=== PATIENT | female | born 1940 | race Caucasian/White ===

== ENCOUNTER 2017-12-23 10:44 | Emergency (ER) | payer MEDICARE ==
[~2017-12-23] VITALS: Ht 154.9 cm; Wt 63.5 kg
[~2017-12-23 10:44] MED LIST: ALBU2TAB4 PO; FORM20NE INH; IPRA0.06 EACH NARE; LEVO112T2 PO; LOSA100T PO; LOVA40TA PO; SPIRCAP INH; TRAM50TA PO; VENTAER INH
[2017-12-23 10:45] VITALS: BP 130/62; PULSE 70; RESP 18; TEMP 98; O2SAT 93
[2017-12-23 11:01] VITALS: O2SAT 94
[2017-12-23] MEDS ORDERED: ALBU0.08 NEB (11:10)
--- NOTE | 2017-12-23 11:21 | PD ---
HPI Chief Complaint: Altered Mental Status Time Seen by Provider: 11:02 Travel History International Travel<30 days: No Contact w/Intl Traveler<30days: No Traveled to known affect area: No History of Present Illness HPI 77-year-old female presents the ER for evaluation of status and generalized weakness. Patient states that she lost her "life partner" on November and since then she has been feeling depressed, low appetite, difficulty sleeping. She discussed these with her primary care physician who gave her "a pill" for "anxiety" and she started taking it yesterday and started feeling dizzy, nauseous and that she fell at home. Fall was due to feeling dizzy and lightheaded, hit her right hip, and she obtained mild pain in the middle of her leg, no bruises or open wounds, patient is able to walk on both legs with no problems, she has no dizziness right now but reports feeling nauseous, she lifts home by herself but states that there is a friend that comes in to check on her. Patient is able to take care of herself she cook for herself takes care of her own financials, she denies any loss of consciousness or head trauma. She has no motor or sensory deficits, she has no difficulty with speech , gait is normal, denies any suicidal or homicidal ideations. PFSH Past Medical History Asthma: Yes High Cholesterol: Yes Diminished Hearing: No Musculoskeletal: Yes (chronic back pain) Thyroid Disease: Yes ?: Not Social History Alcohol Use: No Tobacco Use: No Substance Use: No Allergies-Medications (Allergen,Severity, Reaction): Coded Allergies: codeine (Unverified Allergy, Mild, Itching, 12/23/17) Reported Meds & Prescriptions Reported Meds & Active Scripts Active Reported Albuterol Neb (Albuterol Sulfate) 2.5 Mg/3 Ml Neb 2.5 Mg NEB Q4HR NEB While awake Ventolin Hfa 18 GM Inh (Albuterol Sulfate) 90 Mcg/Act Aer 2 Puff INH Q4-6H PRN Tramadol (Tramadol HCl) 50 Mg Tab 50 Mg PO Q4H PRN Spiriva Handihaler (Tiotropium Inh) 18 Mcg Cap 18 Mcg INH DAILY 1 capsule = 18 mcg Lovastatin 40 Mg Tab 40 Mg PO DAILY Losartan (Losartan Potassium) 100 Mg Tab 100 Mg PO DAILY Levothyroxine (Levothyroxine Sodium) 112 Mcg Tab 112 Mcg PO DAILY Ipratropium Nasal 0.06% [place] 1 [place] EACH NARE TID Perforomist Neb (Formoterol Fumarate) 20 Mcg/2 Ml Neb 1 Nebule INH BID Review of Systems Except as stated in HPI: all other systems reviewed are Neg Physical Exam Narrative GENERAL: Alert oriented 3 maintains eye contact logical thinking. SKIN: Focused skin assessment warm/dry. HEAD: Atraumatic. Normocephalic. EYES: Pupils equal and round. No scleral icterus. No injection or drainage. ENT: No nasal bleeding or discharge. Mucous membranes pink and moist. NECK: Trachea midline. No JVD. CARDIOVASCULAR: Regular rate and rhythm. No murmur appreciated. RESPIRATORY: No accessory muscle use. Clear to auscultation. Breath sounds equal bilaterally. GASTROINTESTINAL: Abdomen soft, non-tender, nondistended. Hepatic and splenic margins not palpable. MUSCULOSKELETAL: No obvious deformities. No clubbing. No cyanosis. No edema. NEUROLOGICAL: Awake and alert. No obvious cranial nerve deficits. Motor grossly within normal limits. Normal speech. PSYCHIATRIC: Appropriate mood and affect; insight and judgment normal. Data Data Last Documented VS Vital Signs Date Time Temp Pulse Resp B/P (MAP) Pulse Ox O2 Delivery O2 Flow Rate FiO2 12/23/17 11:01 94 Room Air 12/23/17 10:54 70 12/23/17 10:45 98.0 18 130/62 (84) Orders Orders Blood Glucose (12/23/17 10:45) Oximetry (12/23/17 10:45) Iv Access Insert/Monitor (12/23/17 10:45) Ecg Monitoring (12/23/17 10:45) Oxygen Administration (12/23/17 10:45) Urinalysis - C+S If Indicated (12/23/17 10:45) Ammonia (12/23/17 11:12) Comprehensive Metabolic Panel (12/23/17 11:12) Complete Blood Count With Diff (12/23/17 11:12) Thyroid Stimulating Hormone (12/23/17 11:12) Ct Brain W/O Iv Contrast(Rout) (12/23/17 ) Hip, Uni(Ap&Lat) W Ap Pelvis (12/23/17 ) Urine Culture (12/23/17 11:48) Ed Discharge Order (12/23/17 12:56) Ondansetron Odt (Zofran Odt) (12/23/17 13:15) Labs Laboratory Tests Test 12/23/17 11:15 12/23/17 11:30 12/23/17 11:48 White Blood Count 4.5 TH/MM3 Red Blood Count 4.50 MIL/MM3 Hemoglobin 13.6 GM/DL Hematocrit 40.8 % Mean Corpuscular Volume 90.8 FL Mean Corpuscular Hemoglobin 30.3 PG Mean Corpuscular Hemoglobin Concent 33.3 % Red Cell Distribution Width 14.9 % Platelet Count 259 TH/MM3 Mean Platelet Volume 9.1 FL Neutrophils (%) (Auto) 73.0 % Lymphocytes (%) (Auto) 18.7 % Monocytes (%) (Auto) 5.8 % Eosinophils (%) (Auto) 1.4 % Basophils (%) (Auto) 1.1 % Neutrophils # (Auto) 3.3 TH/MM3 Lymphocytes # (Auto) 0.8 TH/MM3 Monocytes # (Auto) 0.3 TH/MM3 Eosinophils # (Auto) 0.1 TH/MM3 Basophils # (Auto) 0.0 TH/MM3 CBC Comment DIFF FINAL Differential Comment Blood Urea Nitrogen 17 MG/DL Creatinine 1.20 MG/DL Random Glucose 87 MG/DL Total Protein 8.3 GM/DL Albumin 3.8 GM/DL Calcium Level 9.5 MG/DL Alkaline Phosphatase 93 U/L Aspartate Amino Transf (AST/SGOT) 36 U/L Alanine Aminotransferase (ALT/SGPT) 25 U/L Total Bilirubin 0.6 MG/DL Sodium Level 139 MEQ/L Potassium Level 5.0 MEQ/L Chloride Level 102 MEQ/L Carbon Dioxide Level 28.8 MEQ/L Anion Gap 8 MEQ/L Estimat Glomerular Filtration Rate 43 ML/MIN Thyroid Stimulating Hormone 3rd Gen 33.200 uIU/ML Ammonia 13 MCMOL/L Urine Color YELLOW Urine Turbidity CLOUDY Urine pH 7.5 Urine Specific [place] 1.010 Urine Protein NEG mg/dL Urine Glucose (UA) NEG mg/dL Urine Ketones NEG mg/dL Urine Occult Blood MOD Urine Nitrite POS Urine Bilirubin NEG Urine Urobilinogen 1.0 MG/DL Urine Leukocyte Esterase MOD Urine RBC 0-3 /hpf Urine WBC 6-8 /hpf Urine Squamous Epithelial Cells 0-5 /hpf Urine Bacteria MANY /hpf Microscopic Urinalysis Comment CULTURE INDICATED MDM Medical Decision Making Medical Screen Exam Complete: Yes Emergency Medical Condition: Yes Differential Diagnosis Hypothyroidism, normal grief, depression. Narrative Course 77-year-old female presented ER for evaluation after a fall and generalized weakness and altered mental status. Physical examination reveals normal- looking adult with him not in acute distress and she answers questions properly and she has no altered mental status alert oriented 3. Labs are distended with UTI and hypothyroidism patient is supposed to take levothyroxine 112 mcg daily but she admits that she has not been taking it for the last few weeks. I told the patient that I will not change the dose but she will have to take her medication and follow-up with her primary so that she can evaluate her for her hypothyroid problem. Patient understands and agrees with plan of care. Laboratory Tests Test 12/23/17 11:15 12/23/17 11:30 12/23/17 11:48 White Blood Count 4.5 TH/MM3 Red Blood Count 4.50 MIL/MM3 Hemoglobin 13.6 GM/DL Hematocrit 40.8 % Mean Corpuscular Volume 90.8 FL Mean Corpuscular Hemoglobin 30.3 PG Mean Corpuscular Hemoglobin Concent 33.3 % Red Cell Distribution Width 14.9 % Platelet Count 259 TH/MM3 Mean Platelet Volume 9.1 FL Neutrophils (%) (Auto) 73.0 % Lymphocytes (%) (Auto) 18.7 % Monocytes (%) (Auto) 5.8 % Eosinophils (%) (Auto) 1.4 % Basophils (%) (Auto) 1.1 % Neutrophils # (Auto) 3.3 TH/MM3 Lymphocytes # (Auto) 0.8 TH/MM3 Monocytes # (Auto) 0.3 TH/MM3 Eosinophils # (Auto) 0.1 TH/MM3 Basophils # (Auto) 0.0 TH/MM3 CBC Comment DIFF FINAL Differential Comment Blood Urea Nitrogen 17 MG/DL Creatinine 1.20 MG/DL Random Glucose 87 MG/DL Total Protein 8.3 GM/DL Albumin 3.8 GM/DL Calcium Level 9.5 MG/DL Alkaline Phosphatase 93 U/L Aspartate Amino Transf (AST/SGOT) 36 U/L Alanine Aminotransferase (ALT/SGPT) 25 U/L Total Bilirubin 0.6 MG/DL Sodium Level 139 MEQ/L Potassium Level 5.0 MEQ/L Chloride Level 102 MEQ/L Carbon Dioxide Level 28.8 MEQ/L Anion Gap 8 MEQ/L Estimat Glomerular Filtration Rate 43 ML/MIN Thyroid Stimulating Hormone 3rd Gen 33.200 uIU/ML Ammonia 13 MCMOL/L Urine Color YELLOW Urine Turbidity CLOUDY Urine pH 7.5 Urine Specific [place] 1.010 Urine Protein NEG mg/dL Urine Glucose (UA) NEG mg/dL Urine Ketones NEG mg/dL Urine Occult Blood MOD Urine Nitrite POS Urine Bilirubin NEG Urine Urobilinogen 1.0 MG/DL Urine Leukocyte Esterase MOD Urine RBC 0-3 /hpf Urine WBC 6-8 /hpf Urine Squamous Epithelial Cells 0-5 /hpf Urine Bacteria MANY /hpf Microscopic Urinalysis Comment CULTURE INDICATED Last 24 hours Impressions Hip and Pelvis X-Ray 12/23/17 0000 Signed Impressions: CONCLUSION: Moderate osteopenia and in no definite fracture for technique . Head CT 12/23/17 0000 Signed Impressions: CONCLUSION: Slight chronic small vessel ischemic and atrophic changes. Diagnosis Primary Impression: Hypothyroidism Qualified Codes: E03.9 - Hypothyroidism, unspecified Additional Impression: UTI (urinary tract infection) Qualified Codes: N39.0 - Urinary tract infection, site not specified Additional Instructions: Follow-up with primary care physician return here if symptoms change or do not improve. Scripts Cephalexin (Keflex) 500 Mg Cap 500 MG PO Q12H for Infection for 7 Days, #14 CAP 0 Refills Prov: Danyel Tidwell MD 12/23/17 Disposition: 01 DISCHARGE HOME Condition: Stable Danyel Tidwell MD Dec 23, 2017 11:21
[2017-12-23 11:39] LABS: AUTOMATED NEUTROPHIL # 3.3 TH/MM3 (1.8-7.7); BASOPHIL % 1.1 % (0.0-2.0); EOSINOPHIL # 0.1 TH/MM3 (0-0.4); EOSINOPHIL % 1.4 % (0.0-4.0); HEMATOCRIT 40.8 % (35.0-46.0); HEMOGLOBIN 13.6 GM/DL (11.6-15.3); LYMPH % 18.7 % (9.0-44.0); LYMPHOCYTE # 0.8 TH/MM3 (1.0-4.8); MEAN CELL VOLUME 90.8 FL (80.0-100.0); MEAN CORPUSCULAR HEMOGLOBIN 30.3 PG (27.0-34.0); MEAN CORPUSCULAR HGB CONC 33.3 % (32.0-36.0); MEAN PLATELET VOLUME 9.1 FL (7.0-11.0); MONO % 5.8 % (0.0-8.0); MONOCYTE # 0.3 TH/MM3 (0-0.9); PLATELET COUNT 259 TH/MM3 (150-450); RED CELL DISTRIBUTION WIDTH 14.9 % (11.6-17.2); WHITE BLOOD COUNT 4.5 TH/MM3 (4.0-11.0)
[2017-12-23 11:45] LABS: CHLORIDE 102 MEQ/L (98-107); SODIUM (NA) 139 MEQ/L (136-145)
[2017-12-23 11:49] LABS: ALBUMIN 3.8 GM/DL (3.4-5.0); BICARBONATE 28.8 MEQ/L (21.0-32.0); BLOOD UREA NITROGEN 17 MG/DL (7-18); CALCIUM 9.5 MG/DL (8.5-10.1); GLUCOSE,RANDOM 87 MG/DL (74-106)
[2017-12-23 11:52] LABS: BILIRUBIN, URINE NEG (NEG); BLOOD, URINE MOD (NEG); GLUCOSE,URINE NEG (NEG); KETONE, URINE NEG (NEG); NITRITE,URINE POS (NEG); PH, URINE 7.5 (5.0-8.5); URINE COLOR YELLOW (YELLW/STRAW); URINE LEUKOCYTE ESTERASE MOD (NEG)
[2017-12-23 11:52] LABS: ALT (GPT) 25 U/L (10-53); AST (GOT) 36 U/L (15-37); GLOMERULAR FILTRATION RATE 43 ML/MIN (>89)
[2017-12-23 11:54] LABS: TOTAL BILIRUBIN ADULT 0.6 MG/DL (0.2-1.0); TOTAL PROTEIN 8.3 GM/DL (6.4-8.2)
[2017-12-23 11:55] LABS: ALKALINE PHOSPHATASE 93 U/L (45-117)
[2017-12-23 11:57] LABS: BACTERIA, URINE MANY /hpf; RBC, URINE 0-3 /hpf (0-3); SQUAMOUS EPITHELIAL CELL URINE 0-5 /hpf (0-5)
--- NOTE | 2017-12-23 12:16 | RADRPT ---
EXAM DATE: 12/23/2017 12:06 PM EDT AGE/SEX: 77 years / Female INDICATIONS: Right hip pain post fall. CLINICAL DATA: This is the patient's initial encounter. Patient reports that signs and symptoms have been present for 3 days and indicates a pain score of 6/10. MEDICAL/SURGICAL HISTORY: None. None. COMPARISON: No prior exams available for comparison. FINDINGS: No definite fractures, or dislocations are identified. No definite lytic or sclerotic les ion is seen. Moderate osteopenia is seen. CONCLUSION: Moderate osteopenia and in no definite fracture for technique . Electronically signed by: Eliseo Powers MD 12/23/2017 12:14 PM EDT
--- NOTE | 2017-12-23 12:45 | RADRPT ---
EXAM DATE: 12/23/2017 12:39 PM EDT AGE/SEX: 77 years / Female INDICATIONS: Trauma, fall today. CLINICAL DATA: This is the patient's initial encounter. Patient reports that signs and symptoms have been present for 1 day and indicates a pain score of 0/10. MEDICAL/SURGICAL HISTORY: Hypertension. None. RADIATION DOSE: 44.64 CTDI (mGy) COMPARISON: No prior exams available for comparison. TECHNIQUE: CT of the head without contrast. Using automated exposure control and adjustment of the mA and/or kV according to patient size, radiation dose was kept as low as reasonably achievable to ob tain optimal diagnostic quality images. FINDINGS: There is no evidence for intracranial hemorrhage, mass effect, mass lesions, or edema. The visualize d bony structures appear intact. Slight degree of brain atrophy is seen. Slight periventricular whit e matter changes are seen nonspecific mostly consistent with chronic small vessel ischemic changes. There are no signs of acute infarction for technique. CONCLUSION: Slight chronic small vessel ischemic and atrophic changes. Electronically signed by: Eliseo Powers MD 12/23/2017 12:44 PM EDT
[2017-12-23] MEDS ORDERED: CEPH-460 PO (13:12)
[2017-12-23] MEDS ORDERED: ONDANSETRON ODT 4 MG TAB PO ONE (13:15)
[2017-12-23 13:19] VITALS: BP 145/72; PULSE 68; RESP 18; O2SAT 94
== END 2017-12-23 13:39 | disposition home or self-care (01) ==
LOC: PHED 10:44
DX: E03.9 Hypothyroidism, unspecified (principal); N39.0 Urinary tract infection, site not specified; B96.20 Unspecified Escherichia coli [E. coli] as the cause of diseases classified elsewhere; M85.80 Other specified disorders of bone density and structure, unspecified site; R53.1 Weakness; R42 Dizziness and giddiness; J45.909 Unspecified asthma, uncomplicated; E78.00 Pure hypercholesterolemia, unspecified; Z79.51 Long term (current) use of inhaled steroids
CPT/HCPCS: 70450; 73502; 80053; 81001; 82140; 84443; 85025; 87077; 87086; 87186

== ENCOUNTER 2018-06-07 23:23 | Inpatient (IN) ==
--- NOTE | 2018-06-07 23:59 | XR ---
EXAM DATE: 06/07/2018 11:49 PM EST AGE/SEX: 77 years / Female INDICATIONS: Shortness of breath. CLINICAL DATA: This is the patient's initial encounter. Patient reports that signs and symptoms have been present for 1 day and indicates a pain score of 0/10. MEDICAL/SURGICAL HISTORY: Gastroesophageal reflux disease. Hypercholesterolemia. Hypertension . COPD. Tonsillectomy. COMPARISON: [facility], CHEST 1V SINGLE AP, 05/06/2018. . FINDINGS: A single AP view of the chest demonstrates the lungs to be symmetrically aerated without evidence of mass, infiltrate or effusion. The cardiomediastinal contours are unremarkable. Osseous structures a re intact. CONCLUSION: No acute findings. Electronically signed by: Neville Mantilla MD 06/07/2018 11:58 PM EST
[2018-06-08 00:08] LABS: ABG Base Excess 4.3 mmol/L (-2-2); ABG PCO2 48 mmHg (38-42); ABG PO2 69 mmHg (61-120)
[2018-06-08 00:17] LABS: Baso # (Auto) 0.1 th/mm3 (0.0-0.2); Baso % (Auto) 0.8 % (0.0-2.0); Eos # (Auto) 0.3 th/mm3 (0.0-0.4); Eos % (Auto) 3.3 % (0.0-4.0); Hematocrit 33.8 % (35.0-46.0); Hemoglobin 11.8 gm/dL (11.6-15.3); Lymph # (Auto) 2.6 th/mm3 (1.0-4.8); Lymph % (Auto) 26.4 % (9.0-44.0); Mean Corpuscular HGB Conc 34.9 % (32.0-36.0); Mean Corpuscular Hemoglobin 32.8 pg (27.0-34.0); Mean Platelet Volume 8.5 fL (7.0-11.0); Mono # (Auto) 0.7 th/mm3 (0.0-0.9); Mono % (Auto) 7.5 % (0.0-8.0); Neut # (Auto) 6.2 th/mm3 (1.8-7.7); Platelet Count 304 th/mm3 (150-450); Red Cell Distribution Width 13.5 % (11.6-17.2)
[2018-06-08 00:21] LABS: Bacteria,Urine Rare /hpf; Bilirubin,Urine Negative (Negative); Clarity,Urine Clear (Clear); Color,Urine Colorless (Yellw/Straw); Glucose,Urine (UA) Negative (Negative); Leukocyte Esterase,Urine Small (Negative); Nitrite,Urine Negative (Negative); Specific Gravity,Urine 1.002 (1.002-1.035); Squamous Epithelial Cell,Urine 1 /hpf (0-5)
[2018-06-08 00:34] LABS: Alkaline Phosphatase 87 U/L (45-117); Total Protein 7.4 g/dL (6.4-8.2)
[2018-06-08 00:39] LABS: Alanine Aminotransferase 22 U/L (10-53); Albumin 3.5 g/dL (3.4-5.0); Anion Gap 4 meq/L (5-15); Aspartate Aminotransferase 35 U/L (15-37); Blood Urea Nitrogen 18 mg/dL (7-18); Calcium 9.1 mg/dL (8.5-10.1); Carbon Dioxide 31.5 meq/L (21.0-32.0); Chloride 107 meq/L (98-107); Glomerular Filtration Rate 52 mL/min (>89); Magnesium 3.1 mg/dL (1.5-2.5); Potassium 3.9 meq/L (3.5-5.1); Sodium 142 meq/L (136-145)
[2018-06-08 00:51] LABS: Glucose,Random 95 mg/dL (74-106)
[2018-06-08] MEDS ORDERED: Acetaminophen 325 MG Tablet PO PRN (01:42)
[2018-06-08] MEDS ORDERED: Bisacodyl 10 MG Supp RECTAL PRN (01:42)
--- NOTE | 2018-06-08 01:42 | ED ---
HPI General Chief complaint: Asthma Stated complaint: SOB Time Seen by Provider: 06/07/18 23:35 Source: patient Mode of arrival: EMS Limitations: no limitations History of Present Illness HPI narrative: 77-year-old female came to the emergency room with history of shortness of breath that started this morning and has progressively worsened. Patient has history of COPD and asthma and has been using her inhaler but did not improve. When EMS arrived her oxygen saturation was 81% on room air. She was given 2 duo nebs and magnesium. Upon arrival she was saturating 94% on 2 L via nasal cannula. Patient was awake and answering questions at this point although appeared to be anxious and in some distress. She says she has never been intubated or in the ICU. History of smoking 35 years ago. No history of chest pain this time. No history of fever or chills. She has been coughing some yellowish colored phlegm. Patient does not see a respite provider. She is not on oxygen at home. Related Data Home Medications Medication Instructions Recorded Confirmed losartan 100 mg PO DAILY 04/29/18 06/07/18 lovastatin 40 mg PO DAILY 04/29/18 06/07/18 albuterol sulfate [Ventolin HFA] 2 puff INHALATION Q4-6H PRN 06/07/18 06/07/18 levothyroxine 112 mcg PO DAILY 06/07/18 06/07/18 omeprazole 20 mg PO DAILY 06/07/18 06/07/18 ranitidine HCl [Zantac Maximum 150 mg PO BID 06/07/18 06/07/18 Strength] tiotropium bromide [Spiriva with 1 cap INHALATION DAILY 06/07/18 06/07/18 HandiHaler] Previous Rx's Medication Instructions Recorded albuterol sulfate 2 inh INHALATION Q4-6H #1 g 02/08/18 albuterol sulfate [Ventolin HFA] 2 inh INHALATION Q4H PRN #8 g 04/29/18 Allergies Allergy/AdvReac Type Severity Reaction Status Date / Time codeine Allergy Mild Itching Verified 05/06/18 09:14 Review of Systems ROS: all other systems reviewed are negative [facility] Medical History Medical History COPD (chronic obstructive pulmonary disease) (Acute) Chronic GERD (Acute) High cholesterol (Acute) Hypertension (Acute) Surgical History Surgical History S/P tonsillectomy (Acute) Social History Social History Substance History: No History of Abuse Second Hand Smoke Exposure: No Smoking Status: Never smoker Tobacco Type: Cigarettes How Often Do You Have a Drink Containing Alcohol: Never Immunization History Tetanus Immunization: >5 Years Exam Narrative Exam Narrative: GENERAL: Awake, alert, elderly, frail, moderate distress SKIN: Focused skin assessment warm/dry. Pale HEAD: Atraumatic. Normocephalic. EYES: Pupils equal and round. No scleral icterus. No injection or drainage. ENT: No nasal bleeding or discharge. Mucous membranes pink and moist. NECK: Trachea midline. No JVD. CARDIOVASCULAR: Regular rate and rhythm. No murmur appreciated. RESPIRATORY: Decreased air entry bilaterally with end expiratory wheeze. GASTROINTESTINAL: Abdomen soft, non-tender, nondistended. Hepatic and splenic margins not palpable. MUSCULOSKELETAL: No obvious deformities. No clubbing. No cyanosis. No edema. NEUROLOGICAL: Awake and alert. No obvious cranial nerve deficits. Motor grossly within normal limits. Normal speech. PSYCHIATRIC: Appropriate mood and affect; insight and judgment normal. Course Initial Documented Vital Signs Pulse Rate 85 06/07/18 23:26 Respiratory Rate 26 H 06/07/18 23:26 Blood Pressure 146/62 H 06/07/18 23:26 Pulse Oximetry 94 L 06/07/18 23:26 Last Documented Vital Signs Pulse Rate 94 H 06/08/18 00:17 Respiratory Rate 22 06/08/18 00:17 Blood Pressure 146/62 H 06/07/18 23:32 Pulse Oximetry 96 06/07/18 23:43 Medical Decision Making MDM Narrative Medical decision making narrative: 1:40 AM blood test results are back and within acceptable limit. Cardiac enzymes are within normal limit. Patient was given 2 duo nebs followed by 2 albuterol nebulizer. Solu-Medrol was given IV. I went back and reassessed the patient and she says she is feeling better. Upon re-auscultation air entry has slightly improved but still diminished. I decided to admit her. The plan was mentioned to the patient and she is agreeable with it. I discussed the case with the hospitalist was accepted the patient. Lab Data Result diagrams: 06/07/18 23:48 06/07/18 23:49 Lab Results 06/07/18 06/07/18 06/07/18 Range/Units 23:45 23:48 23:48 WBC 10.0 (4.0-11.0) th/mm3 RBC 3.60 L (4.00-5.30) mil/mm3 Hgb 11.8 (11.6-15.3) gm/dL Hct 33.8 L (35.0-46.0) % MCV 94.0 (80.0-100.0) fL MCH 32.8 (27.0-34.0) pg MCHC 34.9 (32.0-36.0) % RDW 13.5 (11.6-17.2) % Plt Count 304 (150-450) th/mm3 MPV 8.5 (7.0-11.0) fL Neut % (Auto) 62.0 (16.0-70.0) % Lymph % (Auto) 26.4 (9.0-44.0) % [place] % (Auto) 7.5 (0.0-8.0) % Eos % (Auto) 3.3 (0.0-4.0) % Baso % (Auto) 0.8 (0.0-2.0) % Neut # (Auto) 6.2 (1.8-7.7) th/mm3 Lymph # (Auto) 2.6 (1.0-4.8) th/mm3 [place] # (Auto) 0.7 (0.0-0.9) th/mm3 Eos # (Auto) 0.3 (0.0-0.4) th/mm3 Baso # (Auto) 0.1 (0.0-0.2) th/mm3 WBC Differential . Differential Comment Auto diff final Puncture Site Patient Temperature O2 Saturation (90-100) % ABG pH (7.380-7.420) ABG pCO2 (38-42) mmHg ABG pO2 (61-120) mmHg ABG HCO3 (22-26) mmol/L ABG O2 Content (12.0-20.0) Vol % ABG Base Excess (-2-2) mmol/L ABG Methemoglobin (0-2) % Meir Test Hemoglobin (12.0-16.0) G/DL Carboxyhemoglobin (0-4) % O2 Delivery Device Liter Flow L/M Critical Value Sodium (136-145) meq/L Potassium (3.5-5.1) meq/L Chloride (98-107) meq/L Carbon Dioxide (21.0-32.0) meq/L Anion Gap (5-15) meq/L BUN (7-18) mg/dL Creatinine (0.50-1.00) mg/dL Estimated GFR (>89) mL/min Random Glucose (74-106) mg/dL Lactic Acid 1.3 (0.4-2.0) mmol/L Calcium (8.5-10.1) mg/dL Magnesium (1.5-2.5) mg/dL Total Bilirubin (0.2-1.0) mg/dL AST (15-37) U/L ALT (10-53) U/L Alkaline Phosphatase (45-117) U/L Troponin I (0.02-0.05) ng/mL B-Natriuretic Peptide (0-100) pg/mL Total Protein (6.4-8.2) g/dL Albumin (3.4-5.0) g/dL Urine Color Colorless (Yellw/Straw) Urine Clarity Clear (Clear) Urine pH 7.0 (5.0-8.5) Ur Specific [place] 1.002 (1.002-1.035) Urine Protein Negative (Neg-Trace) mg/dL Urine Glucose (UA) Negative (Negative) mg/dL Urine Ketones Negative (Negative) mg/dL Urine Occult Blood Small H (Negative) Urine Nitrate Negative (Negative) Urine Bilirubin Negative (Negative) Urine Urobilinogen Less than 2 (Less than 2) mg/dL Ur Leukocyte Esterase Small H (Negative) Urine WBC 1 (0-5) /hpf Ur Squamous Epith Cells 1 (0-5) /hpf Urine Bacteria Rare H (None) /hpf Micro UA Comment Culture not ind Ur Microscopic Review Not Reportable Urine Culture Comments Culture not ind 06/07/18 06/07/18 06/07/18 Range/Units 23:48 23:49 23:59 WBC (4.0-11.0) th/mm3 RBC (4.00-5.30) mil/mm3 Hgb (11.6-15.3) gm/dL Hct (35.0-46.0) % MCV (80.0-100.0) fL MCH (27.0-34.0) pg MCHC (32.0-36.0) % RDW (11.6-17.2) % Plt Count (150-450) th/mm3 MPV (7.0-11.0) fL Neut % (Auto) (16.0-70.0) % Lymph % (Auto) (9.0-44.0) % [place] % (Auto) (0.0-8.0) % Eos % (Auto) (0.0-4.0) % Baso % (Auto) (0.0-2.0) % Neut # (Auto) (1.8-7.7) th/mm3 Lymph # (Auto) (1.0-4.8) th/mm3 [place] # (Auto) (0.0-0.9) th/mm3 Eos # (Auto) (0.0-0.4) th/mm3 Baso # (Auto) (0.0-0.2) th/mm3 WBC Differential Differential Comment Puncture Site Right radial Patient Temperature 98.6 O2 Saturation 92 (90-100) % ABG pH 7.40 (7.380-7.420) ABG pCO2 48 H (38-42) mmHg ABG pO2 69 (61-120) mmHg ABG HCO3 29 H (22-26) mmol/L ABG O2 Content 15.5 (12.0-20.0) Vol % ABG Base Excess 4.3 H (-2-2) mmol/L ABG Methemoglobin 0.6 (0-2) % Meir Test Present Hemoglobin 12.0 (12.0-16.0) G/DL Carboxyhemoglobin 0.8 (0-4) % O2 Delivery Device Nasal cannula Liter Flow 2.00 L/M Critical Value No Sodium 142 (136-145) meq/L Potassium 3.9 (3.5-5.1) meq/L Chloride 107 (98-107) meq/L Carbon Dioxide 31.5 (21.0-32.0) meq/L Anion Gap 4 L (5-15) meq/L BUN 18 (7-18) mg/dL Creatinine 1.03 H (0.50-1.00) mg/dL Estimated GFR 52 L (>89) mL/min Random Glucose 95 (74-106) mg/dL Lactic Acid (0.4-2.0) mmol/L Calcium 9.1 (8.5-10.1) mg/dL Magnesium 3.1 H (1.5-2.5) mg/dL Total Bilirubin 0.2 (0.2-1.0) mg/dL AST 35 (15-37) U/L ALT 22 (10-53) U/L Alkaline Phosphatase 87 (45-117) U/L Troponin I Less than 0.02 L (0.02-0.05) ng/mL B-Natriuretic Peptide 10 (0-100) pg/mL Total Protein 7.4 (6.4-8.2) g/dL Albumin 3.5 (3.4-5.0) g/dL Urine Color (Yellw/Straw) Urine Clarity (Clear) Urine pH (5.0-8.5) Ur Specific [place] (1.002-1.035) Urine Protein (Neg-Trace) mg/dL Urine Glucose (UA) (Negative) mg/dL Urine Ketones (Negative) mg/dL Urine Occult Blood (Negative) Urine Nitrate (Negative) Urine Bilirubin (Negative) Urine Urobilinogen (Less than 2) mg/dL Ur Leukocyte Esterase (Negative) Urine WBC (0-5) /hpf Ur Squamous Epith Cells (0-5) /hpf Urine Bacteria (None) /hpf Micro UA Comment Ur Microscopic Review Urine Culture Comments Imaging Data Radiologist's impression: Chest X-Ray 06/07/18 23:35 CONCLUSION: No acute findings. ECG Data Attestation: I personally reviewed and interpreted this ECG as follows: Interpretation: Twelve-lead EKG was reviewed by me. Normal sinus rhythm, normal axis, nonspecific ST-T wave changes. Heart rate of 85 bpm. Discharge Plan Discharge Disposition Patient Disposition: 30 Still Patient Physicians Team ED Provider: Ana Martinez Primary Care Provider: Evelio Ramos Attending Provider: Deandre Scales Discharge Interventions Interventions: Vital Signs Last Done: 06/07/18 23:32 Status ED Status: Admitted Patient
[2018-06-08] MEDS: MethylPREDNISolone Sod Succinate Inj 125 MG/2 ML Vial IV.PUSH SCH ×4 (02:26→23:33)
[2018-06-08] MEDS: Levothyroxine 112 MCG Tablet PO SCH (08:50)
[2018-06-08] MEDS: Senna/Docusate Sodium 8.6/50 MG Tablet PO SCH ×2 (08:51→20:42)
[2018-06-08] MEDS ORDERED: Influenza (Quadrivalent) Vaccine 0.5 ML Syringe IM ONE (09:00)
[2018-06-08] MEDS ORDERED: Famotidine 20 MG Tablet PO SCH ×2 (09:00→21:00)
[2018-06-08] MEDS ORDERED: Pantoprazole Sodium 20 MG DR Tablet PO SCH (09:00)
--- NOTE | 2018-06-08 09:11 | P.HPIM ---
History of Present Illness Primary Care Physician: Evelio Ramos Chief Complaint: Shortness of breath History of Present Illness: This is a 77-year-old female with past medical history which includes asthma, borderline diabetes mellitus, COPD, chronic kidney disease stage III, degenerative disc disease, hyperlipidemia, hypertension, hypothyroidism, restless leg syndrome who presented to the emergency department last night due to shortness of breath. Patient reported that started in the morning and has progressively worsened. She has been coughing some yellowish colored phlegm. Patient has history of COPD and asthma and has been using her inhaler with no improvement. When EMS arrived her oxygen saturation was 81% on room air. She was given 2 duo nebs. Upon arrival she was saturating 94% on 2 L via nasal cannula. Patient was awake and answering questions but appeared to be anxious and in some distress upon arrival to the ER. She says she has never been intubated or in the ICU. History of smoking 35 years ago. Patient denies chest pain, fevers or chills. Patient does not see a furniture painter. She is not on oxygen at home. PMH: asthma, borderline diabetes mellitus, COPD, chronic kidney disease stage III, degenerative disc disease, hyperlipidemia, hypertension, hypothyroidism, restless leg syndrome PSxH: Back surgery, colonoscopy, excision of lesion on hands, excision of tendon sheath of finger and knee surgery FMH: Reviewed and noncontributory Social history: Denies EtOH use at this time Denies tobacco use at this time quit smoking 30+ years ago, prior to that smoked 1-2 PPD for 20 years Denies illicit drug use Inpatient Certification Inpatient Certification: I certify that the inpatient services were ordered in accordance with Medicare regulations governing the order. This includes certification that hospital inpatient services are reasonable and necessary and in the case of services not specified as inpatient-only under 42 CFR 419.22(n), that they are appropriately provided as inpatient services in accordance to with the 2-midnight benchmark under 43 CFR 412.3(e) Estimated Total Length of Stay (Days): 3 Plans for Post Hospital Care: Home Medications and Allergies Allergies Allergy/AdvReac Type Severity Reaction Status Date / Time codeine Allergy Mild Itching Verified 05/06/18 09:14 Home Medications Medication Instructions Recorded Confirmed Type losartan 100 mg PO DAILY 04/29/18 06/07/18 History lovastatin 40 mg PO DAILY 04/29/18 06/07/18 History albuterol sulfate [Ventolin HFA] 2 puff INHALATION Q4-6H PRN 06/07/18 06/07/18 History levothyroxine 112 mcg PO DAILY 06/07/18 06/07/18 History ranitidine HCl [Zantac Maximum 150 mg PO BID 06/07/18 06/07/18 History Strength] tiotropium bromide [Spiriva with 1 cap INHALATION DAILY 06/07/18 06/07/18 History HandiHaler] omeprazole 40 mg PO QAM 06/08/18 06/08/18 History Active Medications: Active Medications Acetaminophen (Tylenol) 650 mg PO Q4H PRN PRN Reason: Temp > 100.4 Al Hydroxide/Mg Hydroxide (Milk Of Magnesia Liq) 30 ml PO Q12H PRN PRN Reason: Mild Constipation Albuterol (Duoneb Neb (Prn)) 1 ampul NEB Q2HR NEB PRN PRN Reason: sob Albuterol (Duoneb Neb (Peng)) 1 ampul NEB Q4HR NEB [facility] Last Admin: 06/08/18 03:44 Dose: 1 ampul Bisacodyl (Dulcolax Supp) 10 mg RECTAL DAILY PRN PRN Reason: SEVERE CONSITIPATION Famotidine (Pepcid) 20 mg PO BID [facility] Last Admin: 06/08/18 08:50 Dose: 20 mg Famotidine (Pepcid) 10 mg PO BID [facility] Influenza Virus Vaccine (Fluarix (Quad) Vaccine Inj) 0.5 ml IM .ONCE ONE Stop: 06/08/18 09:01 Last Admin: 06/08/18 08:49 Dose: 0.5 ml Lactulose (Lactulose Liq) 30 ml PO DAILY PRN PRN Reason: SEVERE CONSITIPATION Levothyroxine Sodium (Synthroid) 112 mcg PO DAILY [facility] Last Admin: 06/08/18 08:50 Dose: 112 mcg Losartan Potassium (Cozaar) 100 mg PO DAILY [facility] Last Admin: 06/08/18 08:50 Dose: 100 mg Methylprednisolone Sodium Succinate (Solumedrol Inj) 60 mg IV.PUSH Q6HR [facility] Last Admin: 06/08/18 05:44 Dose: 60 mg Ondansetron HCl (Zofran Inj) 4 mg IV.PUSH Q6H PRN PRN Reason: NAUSEA OR VOMITING Pantoprazole Sodium (Protonix) 20 mg PO DAILY [facility] Last Admin: 06/08/18 08:51 Dose: 20 mg Pravastatin Sodium (Pravachol) 40 mg PO DAILY [facility] Last Admin: 06/08/18 08:51 Dose: 40 mg Senna/Docusate Sodium (Madhavi-Colace) 1 tab PO BID [facility] Last Admin: 06/08/18 08:51 Dose: 1 tab Sennosides (Senokot) 17.2 mg PO Q12H PRN PRN Reason: Moderate Constipation Tiotropium [place] (Spiriva 18 Mcg Inh) 18 mcg INH DAILY [facility] Physical Exam Vital signs: Last Vital Signs Temp 97.9 F 06/08/18 04:30 Pulse 90 06/08/18 04:30 Resp 20 06/08/18 04:30 BP 138/69 06/08/18 04:30 Pulse Ox 97 06/08/18 02:26 Narrative: GENERAL: This is a thin/frail, well-developed patient, in no apparent distress. CARDIOVASCULAR: Regular rate and rhythm RESPIRATORY: diminished GASTROINTESTINAL: Abdomen soft, non-tender, nondistended. Normal active bowel sounds MUSCULOSKELETAL: Extremities without clubbing, cyanosis, or edema. NEURO: Alert & Oriented x4 to person, place, time, situation. Moves all ext x4 Results Labs CBC & Chem 7: 06/07/18 23:48 06/07/18 23:49 Caprini VTE Risk Assessment Caprini VTE Risk Assessment: Moderate/High Risk (score >= 2) Caprini Risk Assessment Model: Point Value = 1 Point Value = 2 Point Value = 3 Point Value = 5 Age 41-60 Minor surgery BMI > 25 kg/m2 Swollen legs Varicose veins or History of unexplained or recurrent spontaneous Oral contraceptives or hormone replacement Sepsis (< 1 month) Serious lung disease, including pneumonia (< 1 month) Abnormal pulmonary function Acute myocardial infarction Congestive heart failure (< 1 month) History of inflammatory bowel disease Medical patient at bed rest Age 61-74 Arthroscopic surgery Major open surgery (> 45 min) Laparoscopic surgery (> 45 min) Malignancy Confined to bed (> 72 hours) Immobilizing plaster cast Central venous access Age >= 75 History of VTE Family history of VTE Factor V Leiden Prothrombin [id number] Lupus anticoagulant Anticardiolipin antibodies Elevated serum homocysteine Heparin-induced thrombocytopenia Other congenital or acquired thrombophilia Stroke (< 1 month) Elective arthroplasty Hip, pelvis, or leg fracture Acute spinal cord injury (< 1 month) Prophylaxis Regimen: Total Risk Factor Score Risk Level Prophylaxis Regimen 0-1 Low Early ambulation 2 Moderate Order ONE of the following: *Sequential Compression Device (SCD) *Heparin 5000 units SQ BID 3-4 Higher Order ONE of the following medications: *Heparin 5000 units SQ TID *Enoxaparin/Lovenox 40 mg SQ daily (WT < 150 kg, CrCl > 30 mL/min) *Enoxaparin/Lovenox 30 mg SQ daily (WT < 150 kg, CrCl > 10-29 mL/min) *Enoxaparin/Lovenox 30 mg SQ BID (WT < 150 kg, CrCl > 30 mL/min) AND/OR *Sequential Compression Device (SCD) 5 or more Highest Order ONE of the following medications: *Heparin 5000 units SQ TID (Preferred with Epidurals) *Enoxaparin/Lovenox 40 mg SQ daily (WT < 150 kg, CrCl > 30 mL/min) *Enoxaparin/Lovenox 30 mg SQ daily (WT < 150 kg, CrCl > 10-29 mL/min) *Enoxaparin/Lovenox 30 mg SQ BID (WT < 150 kg, CrCl > 30 mL/min) AND *Sequential Compression Device (SCD) Assessment and Plan Plan This is a 77-year-old female with past medical history which includes asthma, borderline diabetes mellitus, COPD, chronic kidney disease stage III, degenerative disc disease, hyperlipidemia, hypertension, hypothyroidism, restless leg syndrome who presented to the emergency department last night due to shortness of breath. Patient reported that started in the morning and has progressively worsened. She has been coughing some yellowish colored phlegm. Patient has history of COPD and asthma and has been using her inhaler with no improvement. When EMS arrived her oxygen saturation was 81% on room air. She was given 2 duo nebs. Upon arrival she was saturating 94% on 2 L via nasal cannula. Patient was awake and answering questions but appeared to be anxious and in some distress upon arrival to the ER. She says she has never been intubated or in the ICU. History of smoking 35 years ago. Patient denies chest pain, fevers or chills. Patient does not see a furniture painter. She is not on oxygen at home. COPD exacerbation Chest X-Ray 06/07/18 No acute findings Solu-Medrol 125 mg IV given x1 in the emergency department We will continue Solu-Medrol 60 mg IV every 6 hours Spiriva daily Duo nebs every 4 hours and as needed add singular add levaquin Supplemental oxygen as needed chronic kidney disease stage III Avoid nephrotoxic agents Monitor renal function Hyperlipidemia Continue home losartan 40 mg p.o. daily Hypertension Continue home losartan 100 mg p.o. daily Hypothyroidism Continue home levothyroxine 112 mcg daily Acid reflux continue home omeprazole 40 mg daily a.m. and Zantac 150 mg p.o. twice daily DVT prophylaxis with SCDs Attending Attestation Patient examined. Assessment and plan formulated with Char Miller PA-C. I agree with the above. H&P: Quality VTE Deep Vein Thrombosis/Pulmonary Embolism Present on Admission: No
[2018-06-08] MEDS: ALPRAZolam 0.25 MG Tablet PO SCH ×2 (12:15→20:42)
[2018-06-08] MEDS: Tiotropium Bromide 18 MCG/ACT Inhaler INH SCH (12:15)
--- NOTE | 2018-06-08 13:49 | ECG ---
Date Performed: 06/07/2018 Time Performed: 23:30:37 PTAGE: 77 years EKG: Sinus rhythm NONSPECIFIC ST & T-WAVE ABNORMALITY ABNORMAL ECG Since the PREVIOUS TRACING , no significant change noted PREVIOUS TRACIN05/06/2018 09.57 DOCTOR: Angel Christensen Interpretating Date/Time 06/08/2018 13:47:14
[2018-06-08] MEDS: Montelukast 10 MG Tablet PO SCH (20:41)
[2018-06-08] MEDS: Budesonide-Formoterol 160/4.5 MCG 6 GM Inhaler INH SCH (20:41)
[2018-06-08] MEDS: Famotidine 20 MG Tablet PO SCH (23:33)
[2018-06-09 07:17] LABS: Calcium 9.1 mg/dL (8.5-10.1); Carbon Dioxide 27.7 meq/L (21.0-32.0); Potassium 4.4 meq/L (3.5-5.1)
[2018-06-09] MEDS: Levothyroxine 112 MCG Tablet PO SCH (08:16)
[2018-06-09] MEDS: Pantoprazole Sodium 20 MG DR Tablet PO SCH (08:16)
[2018-06-09] MEDS: Famotidine 20 MG Tablet PO SCH ×2 (08:16→22:14)
[2018-06-09] MEDS: ALPRAZolam 0.25 MG Tablet PO SCH ×2 (08:16→22:14)
[2018-06-09] MEDS: Budesonide-Formoterol 160/4.5 MCG 6 GM Inhaler INH SCH ×2 (08:20→22:15)
[2018-06-09] MEDS: Senna/Docusate Sodium 8.6/50 MG Tablet PO SCH ×2 (08:21→22:14)
[2018-06-09] MEDS: Tiotropium Bromide 18 MCG/ACT Inhaler INH SCH (08:30)
--- NOTE | 2018-06-09 08:37 | P.PNIM ---
Subjective Interval history: Patient reports breathing feels better c/o acid reflux last night Physical Exam Vital signs: Last Vital Signs Temp 98 F 06/09/18 08:00 Pulse 79 06/09/18 08:00 Resp 18 06/09/18 08:00 BP 122/59 L 06/09/18 08:00 Pulse Ox 94 L 06/09/18 08:00 Narrative: GENERAL: This is a thin/frail, well-developed patient, in no apparent distress. CARDIOVASCULAR: Regular rate and rhythm RESPIRATORY: diminished GASTROINTESTINAL: Abdomen soft, non-tender, nondistended. Normal active bowel sounds MUSCULOSKELETAL: Extremities without clubbing, cyanosis, or edema. NEURO: Alert & Oriented x4 to person, place, time, situation. Moves all ext x4 Results Labs CBC & Chem 7: 06/07/18 23:48 06/09/18 06:10 Assessment and Plan Plan This is a 77-year-old female with past medical history which includes asthma, borderline diabetes mellitus, COPD, chronic kidney disease stage III, degenerative disc disease, hyperlipidemia, hypertension, hypothyroidism, restless leg syndrome who presented to the emergency department last night due to shortness of breath. Patient reported that started in the morning and has progressively worsened. She has been coughing some yellowish colored phlegm. Patient has history of COPD and asthma and has been using her inhaler with no improvement. When EMS arrived her oxygen saturation was 81% on room air. She was given 2 duo nebs. Upon arrival she was saturating 94% on 2 L via nasal cannula. Patient was awake and answering questions but appeared to be anxious and in some distress upon arrival to the ER. She says she has never been intubated or in the ICU. History of smoking 35 years ago. Patient denies chest pain, fevers or chills. Patient does not see a repair miller. She is not on oxygen at home. COPD exacerbation Chest X-Ray 06/07/18 No acute findings Solu-Medrol 125 mg IV given x1 in the emergency department We will continue Solu-Medrol 60 mg IV every 6 hours Spiriva daily Duo nebs every 4 hours and as needed continue symbicort Wean supplemental oxygen walk test tomorrow AM chronic kidney disease stage III Avoid nephrotoxic agents Monitor renal function Hyperlipidemia Continue home losartan 40 mg p.o. daily Hypertension Continue home losartan 100 mg p.o. daily Hypothyroidism Continue home levothyroxine 112 mcg daily Acid reflux continue home omeprazole 20 mg daily a.m. and Pepcid 20 mg p.o. twice daily DVT prophylaxis with SCDs PT recommending SNF for rehab Plan to DC tomorrow if patient remains stable Progress Note: Quality VTE Deep Vein Thrombosis/Pulmonary Embolism Present on Admission: No
[2018-06-09] MEDS: MethylPREDNISolone Sod Succinate Inj 125 MG/2 ML Vial IV.PUSH SCH (12:52)
[2018-06-09] MEDS: Montelukast 10 MG Tablet PO SCH (22:15)
[2018-06-10] MEDS: MethylPREDNISolone Sod Succinate Inj 125 MG/2 ML Vial IV.PUSH SCH ×2 (01:18→12:15)
[2018-06-10] MEDS: Levothyroxine 112 MCG Tablet PO SCH (05:56)
[2018-06-10] MEDS: Pantoprazole Sodium 20 MG DR Tablet PO SCH (08:35)
[2018-06-10] MEDS: Senna/Docusate Sodium 8.6/50 MG Tablet PO SCH ×2 (08:35→20:44)
[2018-06-10] MEDS: Famotidine 20 MG Tablet PO SCH ×2 (08:35→20:43)
[2018-06-10] MEDS: ALPRAZolam 0.25 MG Tablet PO SCH ×2 (08:35→20:43)
[2018-06-10] MEDS: Budesonide-Formoterol 160/4.5 MCG 6 GM Inhaler INH SCH ×2 (08:36→20:43)
[2018-06-10] MEDS: Tiotropium Bromide 18 MCG/ACT Inhaler INH SCH (10:48)
--- NOTE | 2018-06-10 11:45 | P.PNIM ---
Subjective Interval history: Patient sitting up in chair reports breathing in better S/P walk test - will require home oxygen Physical Exam Vital signs: Last Vital Signs Temp 97.7 F 06/10/18 08:42 Pulse 76 06/10/18 08:52 Resp 16 06/10/18 08:52 BP 153/70 H 06/10/18 08:42 Pulse Ox 94 L 06/10/18 10:32 Narrative: GENERAL: This is a thin/frail, well-developed patient, in no apparent distress. CARDIOVASCULAR: Regular rate and rhythm RESPIRATORY: clear through out GASTROINTESTINAL: Abdomen soft, non-tender, nondistended. Normal active bowel sounds MUSCULOSKELETAL: Extremities without clubbing, cyanosis, or edema. NEURO: Alert & Oriented x4 to person, place, time, situation. Moves all ext x4 Results Labs CBC & Chem 7: 06/07/18 23:48 06/09/18 06:10 Assessment and Plan Plan This is a 77-year-old female with past medical history which includes asthma, borderline diabetes mellitus, COPD, chronic kidney disease stage III, degenerative disc disease, hyperlipidemia, hypertension, hypothyroidism, restless leg syndrome who presented to the emergency department last night due to shortness of breath. Patient reported that started in the morning and has progressively worsened. She has been coughing some yellowish colored phlegm. Patient has history of COPD and asthma and has been using her inhaler with no improvement. When EMS arrived her oxygen saturation was 81% on room air. She was given 2 duo nebs. Upon arrival she was saturating 94% on 2 L via nasal cannula. Patient was awake and answering questions but appeared to be anxious and in some distress upon arrival to the ER. She says she has never been intubated or in the ICU. History of smoking 35 years ago. Patient denies chest pain, fevers or chills. Patient does not see a blanket cutter hand. She is not on oxygen at home. COPD exacerbation Chest X-Ray 06/07/18 No acute findings Solu-Medrol 125 mg IV given x1 in the emergency department We will continue Solu-Medrol 60 mg IV every 6 hours Spiriva daily Duo nebs every 4 hours and as needed continue symbicort continue supplemental oxygen s/p walk test- will require home oxygen chronic kidney disease stage III Avoid nephrotoxic agents Monitor renal function Hyperlipidemia Continue home losartan 40 mg p.o. daily Hypertension Continue home losartan 100 mg p.o. daily Hypothyroidism Continue home levothyroxine 112 mcg daily Acid reflux continue home omeprazole 20 mg daily a.m. and Pepcid 20 mg p.o. twice daily DVT prophylaxis with SCDs PT recommending SNF for rehab - patient refusing agrees to go home with HHC Plan to DC tomorrow AM with HHC and home oxygen Progress Note: Quality VTE Deep Vein Thrombosis/Pulmonary Embolism Present on Admission: No
--- NOTE | 2018-06-10 11:45 | P.DS ---
DS: Providers Date of admission: 06/08/18 01:36 Primary care physician: Evelio Ramos Brief History from admission: This is a 77-year-old female with past medical history which includes asthma, borderline diabetes mellitus, COPD, chronic kidney disease stage III, degenerative disc disease, hyperlipidemia, hypertension, hypothyroidism, restless leg syndrome who presented to the emergency department last night due to shortness of breath. Patient reported that started in the morning and has progressively worsened. She has been coughing some yellowish colored phlegm. Patient has history of COPD and asthma and has been using her inhaler with no improvement. When EMS arrived her oxygen saturation was 81% on room air. She was given 2 duo nebs. Upon arrival she was saturating 94% on 2 L via nasal cannula. Patient was awake and answering questions but appeared to be anxious and in some distress upon arrival to the ER. She says she has never been intubated or in the ICU. History of smoking 35 years ago. Patient denies chest pain, fevers or chills. Patient does not see a director property. She is not on oxygen at home. PMH: asthma, borderline diabetes mellitus, COPD, chronic kidney disease stage III, degenerative disc disease, hyperlipidemia, hypertension, hypothyroidism, restless leg syndrome PSxH: Back surgery, colonoscopy, excision of lesion on hands, excision of tendon sheath of finger and knee surgery FMH: Reviewed and noncontributory Social history: Denies EtOH use at this time Denies tobacco use at this time quit smoking 30+ years ago, prior to that smoked 1-2 PPD for 20 years Denies illicit drug use DS: Summary This is a 77-year-old female with past medical history which includes asthma, borderline diabetes mellitus, COPD, chronic kidney disease stage III, degenerative disc disease, hyperlipidemia, hypertension, hypothyroidism, restless leg syndrome who presented to the emergency department last night due to shortness of breath. Patient reported that started in the morning and has progressively worsened. She has been coughing some yellowish colored phlegm. Patient has history of COPD and asthma and has been using her inhaler with no improvement. When EMS arrived her oxygen saturation was 81% on room air. She was given 2 duo nebs. Upon arrival she was saturating 94% on 2 L via nasal cannula. Patient was awake and answering questions but appeared to be anxious and in some distress upon arrival to the ER. She says she has never been intubated or in the ICU. History of smoking 35 years ago. Patient denies chest pain, fevers or chills. Patient does not see a director property. She is not on oxygen at home. COPD exacerbation Chest X-Ray 06/07/18 No acute findings Solu-Medrol 125 mg IV given x1 in the emergency department We will continue Solu-Medrol 60 mg IV every 6 hours Spiriva daily Duo nebs every 4 hours and as needed continue symbicort continue supplemental oxygen s/p walk test- will require home oxygen chronic kidney disease stage III Avoid nephrotoxic agents Monitor renal function Hyperlipidemia Continue home losartan 40 mg p.o. daily Hypertension Continue home losartan 100 mg p.o. daily Hypothyroidism Continue home levothyroxine 112 mcg daily Acid reflux continue home omeprazole 20 mg daily a.m. and Pepcid 20 mg p.o. twice daily DVT prophylaxis with SCDs PT recommending SNF for rehab - patient refusing agrees to go home with HHC Plan to DC tomorrow AM with HHC and home oxygen Time Spent with Patient Total time spent providing and/or coordinating discharge services: Quality: VTE Deep Vein Thrombosis/Pulmonary Embolism Present on Admission: No Exam Narrative Exam Narrative: GENERAL: This is a thin/frail, well-developed patient, in no apparent distress. CARDIOVASCULAR: Regular rate and rhythm RESPIRATORY: clear through out GASTROINTESTINAL: Abdomen soft, non-tender, nondistended. Normal active bowel sounds MUSCULOSKELETAL: Extremities without clubbing, cyanosis, or edema. NEURO: Alert & Oriented x4 to person, place, time, situation. Moves all ext x4 Results Labs on day of discharge: Labs from last 24 hours 06/10/18 10:30 POC Glucose 137 H Preliminary micro results at discharge 06/07/18 23:45 Aerobic Blood Culture - Preliminary Blood - Peripheral No growth in 2 days Anaerobic Blood Culture - Preliminary No growth in 2 days 06/07/18 23:50 Aerobic Blood Culture - Preliminary Blood - Peripheral No growth in 2 days Anaerobic Blood Culture - Preliminary No growth in 2 days Impressions ITS Impressions Chest X-Ray 06/07/18 23:35 CONCLUSION: No acute findings. Discharge Plan Discharge Disposition Patient Disposition: W/Home Health Service Discharge Condition Condition: Stable Discharge Order Discharge Orders: Discharge Order (Routine); Ordered 06/10/18 Ordered By: Char Miller Physicians Team ED Provider: Ana Martinez Primary Care Provider: Evelio Ramos Attending Provider: Deandre Scales Rxs /Orders / Referrals /Forms Prescriptions: New fluticasone-salmeterol [AirDuo RespiClick] 113-14 mcg/actuation aerosol powdr breath activated 1 inh INHALATION BID 30 Days Qty: 1 RF: 0 prednisone 20 mg tablet See Label Instructions .ROUTE .COMPLEX Qty: 18 RF: 0 Continue albuterol sulfate 90 mcg/actuation HFA aerosol inhaler 2 inh INHALATION Q4-6H Qty: 1 RF: 0 lovastatin 40 mg Tablet 40 mg PO DAILY RF: 0 losartan 100 mg Tablet 100 mg PO DAILY RF: 0 albuterol sulfate [Ventolin HFA] 90 mcg/actuation HFA aerosol inhaler 2 inh INHALATION Q4H PRN (Reason: shortness of breath) Qty: 8 RF: 0 ranitidine HCl [Zantac Maximum Strength] 150 mg Tablet 150 mg PO BID RF: 0 albuterol sulfate [Ventolin HFA] 90 mcg/actuation Hfa Aerosol Inhaler 2 puff INHALATION Q4-6H PRN (Reason: Shortness Of Breath) RF: 0 levothyroxine 112 mcg Tablet 112 mcg PO DAILY RF: 0 tiotropium bromide [Spiriva with HandiHaler] 18 mcg Capsule, W/Inhalation Device 1 cap INHALATION DAILY RF: 0 omeprazole 40 mg Capsule,Delayed Release(Dr/Ec) 40 mg PO QAM RF: 0 Referrals: Evelio Ramos [Primary Care Provider] - See Instructions (follow up within 1 week) Discharge Interventions Interventions: Discharge Planning - Case Management Last Done: 06/08/18 11:30 Status ED Status: Left Department
--- NOTE | 2018-06-10 11:47 | P.DCO ---
Physical Therapy Order: Evaluate and treat Home Health Nursing Order: Medical education, Signs/symptoms of disease process, Oxygen administration education and Nursing assessment with vital signs Lawnmower Repair Mechanic Order: To provide: Long range planning Case Management Consult Case Management Consult-Home Health: Yes I have seen patient Janay Tripp on 06/10/18. My clinical findings support the need for the requested home health care services because: Patient has SOB I certify that my clinical findings support that this patient is homebound because: Hx COPD - exertion dyspnea/weakness and Unsteady gait/balance
--- NOTE | 2018-06-10 13:44 | P.DCO ---
Case Management Consult Case Management Consult-Home Health: Yes I have seen patient aJnay Tripp on 06/10/18. My clinical findings support the need for the requested home health care services because: I certify that my clinical findings support that this patient is homebound because:
[2018-06-10] MEDS: Montelukast 10 MG Tablet PO SCH (20:44)
[2018-06-11] MEDS: MethylPREDNISolone Sod Succinate Inj 125 MG/2 ML Vial IV.PUSH SCH ×2 (00:32→12:55)
[2018-06-11] MEDS: Levothyroxine 112 MCG Tablet PO SCH (06:07)
[2018-06-11] MEDS: ALPRAZolam 0.25 MG Tablet PO SCH (08:01)
[2018-06-11] MEDS: Pantoprazole Sodium 20 MG DR Tablet PO SCH (08:01)
[2018-06-11] MEDS: Famotidine 20 MG Tablet PO SCH (08:01)
[2018-06-11] MEDS: Budesonide-Formoterol 160/4.5 MCG 6 GM Inhaler INH SCH (08:02)
[2018-06-11] MEDS: Tiotropium Bromide 18 MCG/ACT Inhaler INH SCH (08:02)
[2018-06-11] MEDS: Senna/Docusate Sodium 8.6/50 MG Tablet PO SCH (08:03)
--- NOTE | 2018-06-11 21:34 | P.PNIM ---
Subjective Interval history: pt awaiting dc arrangements anxious Physical Exam Vital signs: Last Vital Signs Temp 97.3 F L 06/11/18 13:43 Pulse 79 06/11/18 13:43 Resp 18 06/11/18 13:43 BP 138/65 06/11/18 13:43 Pulse Ox 94 L 06/11/18 13:43 Narrative: GENERAL: This is a thin/frail, well-developed patient, in no apparent distress. CARDIOVASCULAR: Regular rate and rhythm RESPIRATORY: clear through out GASTROINTESTINAL: Abdomen soft, non-tender, nondistended. Normal active bowel sounds MUSCULOSKELETAL: Extremities without clubbing, cyanosis, or edema. NEURO: Alert & Oriented x4 to person, place, time, situation. Moves all ext x4 Results Labs CBC & Chem 7: 06/07/18 23:48 06/09/18 06:10 Assessment and Plan Plan This is a 77-year-old female with past medical history which includes asthma, borderline diabetes mellitus, COPD, chronic kidney disease stage III, degenerative disc disease, hyperlipidemia, hypertension, hypothyroidism, restless leg syndrome who presented to the emergency department last night due to shortness of breath. Patient reported that started in the morning and has progressively worsened. She has been coughing some yellowish colored phlegm. Patient has history of COPD and asthma and has been using her inhaler with no improvement. When EMS arrived her oxygen saturation was 81% on room air. She was given 2 duo nebs. Upon arrival she was saturating 94% on 2 L via nasal cannula. Patient was awake and answering questions but appeared to be anxious and in some distress upon arrival to the ER. She says she has never been intubated or in the ICU. History of smoking 35 years ago. Patient denies chest pain, fevers or chills. 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 She is not on oxygen at home. COPD exacerbation Chest X-Ray 06/07/18 No acute findings Solu-Medrol 125 mg IV given x1 in the emergency department We will continue Solu-Medrol 60 mg IV every 6 hours Spiriva daily Duo nebs every 4 hours and as needed continue symbicort continue supplemental oxygen s/p walk test- will require home oxygen pt with dc orders from 05/10. spoke with CM. arrangements for [facility] and home o2 chronic kidney disease stage III Avoid nephrotoxic agents Monitor renal function Hyperlipidemia Continue home losartan 40 mg p.o. daily Hypertension Continue home losartan 100 mg p.o. daily Hypothyroidism Continue home levothyroxine 112 mcg daily Acid reflux continue home omeprazole 20 mg daily a.m. and Pepcid 20 mg p.o. twice daily DVT prophylaxis with SCDs PT recommending SNF for rehab - patient refusing agrees to go home with C Progress Note: Quality VTE Deep Vein Thrombosis/Pulmonary Embolism Present on Admission: No
== END 2018-06-11 15:33 | disposition home health service (06) ==
LOC: NEPC 23:23 → NEDA 06-08 01:36 → N06 06-08 04:10
PROVIDERS: ADMIT Hospitalist; ATTEND Hospitalist